=== PATIENT | female | born 1970 | race Caucasian/White ===

== ENCOUNTER → 2024-02-08 | Outpatient (CLI) | payer OTHER ==
[2024-02-08 12:35] LABS: HEMATOCRIT 41.9 % (37.0-47.0); HEMOGLOBIN 13.6 g/dL (12.5-16.0); MEAN PLATELET VOLUME 10.5 fl (7.4-10.4); RED BLOOD COUNT 4.96 M/mm3 (4.10-5.30); RED CELL DISTRIBUTION WIDTH 12.7 % (11.5-14.5); WHITE BLOOD COUNT 3.7 K/mm3 (4.8-10.8)
[2024-02-08 12:43] LABS: ALBUMIN 4.1 g/dL (3.5-5.0)
[2024-02-08 12:45] LABS: CALCIUM 8.8 mg/dL (8.3-10.5)
[2024-02-08 12:48] LABS: TOTAL BILIRUBIN 0.3 mg/dL (0.2-1.2)
[2024-02-09 00:38] LABS: ESTRADIOL 58 pg/mL (()); FOLLICLE STIMULATING HORMONE 40.7 mIU/mL (()); T3 FREE 2.5 pg/mL (1.7-3.7)
[2024-02-10 06:38] LABS: SEX HORMONE BINDING GLOBULIN 90.2 nmol/L (())
== END ==
LOC: LAB 12:12
DX: N95.1 Menopausal and female climacteric states (principal); R53.83 Other fatigue

== ENCOUNTER → 2024-02-20 | Outpatient (CLI) | payer OTHER | LOC: MAMMO 13:00 | DX: Z12.31 Encounter for screening mammogram for malignant neoplasm of breast (principal) ==

== ENCOUNTER → 2024-06-19 | Outpatient (CLI) | payer OTHER | LOC: RAD 11:53 | DX: M75.102 Unspecified rotator cuff tear or rupture of left shoulder, not specified as traumatic (principal); M25.812 Other specified joint disorders, left shoulder ==